=== PATIENT | female | born 2000 | race Caucasian/White ===

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

== ENCOUNTER 2021-01-22 23:39 | Emergency (ER) | payer OTHER ==
[~2021-01-22] VITALS: Ht 154.9 cm; Wt 90.9 kg
[2021-01-23 01:00] VITALS: BP 113/64
[2021-01-23] MEDS ORDERED: IBUPROFEN 600 MG TABLET PO ONE (01:45)
== END 2021-01-23 03:04 | disposition home or self-care (01) ==
LOC: EMS 23:40
DX: S93.402A Sprain of unspecified ligament of left ankle, initial encounter (principal); W01.0XXA Fall on same level from slipping, tripping and stumbling without subsequent striking against object, initial encounter; Y93.89 Activity, other specified; Y92.89 Other specified places as the place of occurrence of the external cause; Y99.8 Other external cause status
CPT/HCPCS: 12004; 99283